=== PATIENT | male | born 1985 | race Caucasian/White ===

== ENCOUNTER 2021-06-22 22:05 | Emergency (ER) | payer BC, OTHER ==
[~2021-06-22 22:05] MED LIST: ZOFRAN4 MG PO
[2021-06-22 22:32] LABS: HEMOGLOBIN 16.1 gm/dl (14.0-17.5); RED BLOOD COUNT 5.23 M/UL (4.20-5.50); WHITE BLOOD COUNT 11.9 K/UL (4.5-11.0)
[2021-06-22] MEDS ORDERED: HYDROCHLOROTH12.5 MG PO (22:57)
[2021-06-22 23:01] LABS: BUN/CREATININE RATIO 13 (0-10)
== END 2021-06-22 23:36 | disposition home or self-care (01) ==
LOC: ER1 22:05
PROVIDERS: Emergency Medicine
DX: I10 Essential (primary) hypertension (principal); F17.200 Nicotine dependence, unspecified, uncomplicated
CPT/HCPCS: 71045; 80053; 82550; 82553; 83874; 84484; 85025; 85379; 93005; 96374; 99284

== ENCOUNTER → 2021-06-26 | Outpatient (CLI) | payer BC ==
[~2021-06-26] MED LIST changes: +HYDROCHLOROTH12.5 MG PO
== END ==
LOC: LAB 15:58
DX: I10 Essential (primary) hypertension (principal); E55.9 Vitamin D deficiency, unspecified
CPT/HCPCS: 36415; 80061; 84439; 84443

== ENCOUNTER → 2021-12-18 | Outpatient (CLI) | payer BC, OTHER | LOC: RAD 16:33 | DX: R05.3 Chronic cough (principal) | CPT/HCPCS: 71046 ==

== ENCOUNTER → 2022-02-12 | Outpatient (CLI) | payer BC ==
[2022-02-12 10:43] LABS: RED BLOOD COUNT 5.08 M/UL (4.20-5.50); WHITE BLOOD COUNT 8.4 K/UL (4.5-11.0)
[2022-02-12 11:15] LABS: BUN/CREATININE RATIO 21 (0-10)
== END ==
LOC: LAB 10:19
PROVIDERS: Nurse Practitioner Family
DX: I10 Essential (primary) hypertension (principal); E53.8 Deficiency of other specified B group vitamins; E55.9 Vitamin D deficiency, unspecified
CPT/HCPCS: 36415; 80053; 80061; 82607; 84439; 84443; 85025